=== PATIENT | male | born 1960 | race Caucasian/White ===

== ENCOUNTER 2019-11-01 06:55 | Emergency (ER) | payer BC ==
[2019-11-01] MEDS ORDERED: Sodium Chloride 0.9% 10 ML Syringe FLUSH PRN (07:05)
[2019-11-01] MEDS ORDERED: Aspirin 81 MG Tab.Chew PO ONE (07:05)
[2019-11-01] MEDS ORDERED: Morphine 4 MG/ML Syringe IVPUSH ONE ×2 (07:05→07:52)
--- NOTE | 2019-11-01 07:32 | EDM.PDOC ---
ED HPI GENERAL MEDICAL PROBLEM - General Chief Complaint: Chest Pain Stated Complaint: CHEST PAIN Time Seen by Provider: 11/01/19 06:59 Source of Information: Reports: Patient History Limitations: Reports: No Limitations - History of Present Illness INITIAL COMMENTS - FREE TEXT/NARRATIVE: The patient presents with chest pain. This has been going no for about 3 days. It comes and goes. This morning it would not go away. He went to his doctor Dr Espana yesterday and he did labs and an EKG and set him up for a stress test tomorrow. He says the pain is sharp. He has shortness of breath with it and some nausea. He has some numbness down both arms. He denies fever, chills, cough, congestion, runny nose, or abdominal pain. He has never had a heart attack before. He has no history of hypertension, hypercholesterolemia, or diabetes. He does smoke. Onset: Gradual Duration: Day(s): (3) Location: Reports: Chest Quality: Reports: Sharp Severity: Moderate Improves with: Reports: None Worsens with: Reports: None Associated Symptoms: Reports: Chest Pain, Shortness of Breath. Denies: Cough, Fever/Chills, Headaches, Nausea/Vomiting chrst Pain Score (Numeric/FACES): 8 - Related Data Allergies Allergy/AdvReac Type Severity Reaction Status Date / Time No Known Allergies Allergy Verified 11/01/19 07:02 Home Meds: Home Meds . [No Known Home Meds] 11/01/19 [History] Past Medical History - Past Health History Medical/Surgical History: Denies Medical/Surgical History Social & Family History - Tobacco Use Smoking Status *Q: Current Every Day Smoker Years of Tobacco use: 40 Packs/Tins Daily: 0.5 - Recreational Drug Use Recreational Drug Use: No ED ROS GENERAL - Review of Systems Review Of Systems: See Below Constitutional: Reports: No Symptoms HEENT: Reports: No Symptoms Respiratory: Reports: Shortness of Breath Cardiovascular: Reports: Chest Pain Endocrine: Reports: No Symptoms GI/Abdominal: Reports: No Symptoms : Reports: No Symptoms Musculoskeletal: Reports: No Symptoms ED EXAM, GENERAL - Physical Exam Exam: See Below Exam Limited By: No Limitations General Appearance: Alert, No Apparent Distress Ears: Normal External Exam Nose: Normal Inspection Head: Atraumatic, Normocephalic Neck: Normal Inspection Respiratory/Chest: No Respiratory Distress, Lungs Clear, Normal Breath Sounds Cardiovascular: Regular Rate, Rhythm, No Edema, No Murmur GI/Abdominal: Soft, Non-Tender, No Organomegaly, No Mass Extremities: Normal Inspection Neurological: Alert, Oriented, No Motor/Sensory Deficits EKG INTERPRETATION EKG Date: 11/01/19 Time: 06:59 Rhythm: Other (Junctional rhythm) Rate (Beats/Min): 41 [place]: Normal P-Wave: Present QRS: Normal ST-T: Other (Depression in the lateral leads with slight elevation in the anterior leads) QT: Normal Course - Vital Signs Last Recorded V/S: Last Vital Signs Temp 97.8 F 11/01/19 06:59 Pulse 40 L 11/01/19 06:59 Resp 19 11/01/19 06:59 BP 185/86 H 11/01/19 06:59 Pulse Ox 100 11/01/19 06:59 - Orders/Labs/Meds Orders: Active Orders 24 hr Category Date Time Status Cardiac Monitoring [RC] . DIRECTED Care 11/01/19 07:05 Active EKG Documentation Completion [RC] ASDIRECTED Care 11/01/19 08:15 Active EKG Documentation Completion [RC] STAT Care 11/01/19 07:06 Active Oxygen Therapy [RC] PRN Care 11/01/19 07:05 Active Peripheral IV Care [RC] . DIRECTED Care 11/01/19 07:06 Active CORONAVIRUS COVID-19 PCR PHL Stat Lab 11/01/19 08:03 Ordered Sodium Chloride 0.9% [Saline Flush] Med 11/01/19 07:05 Active 10 ml FLUSH ASDIRECTED PRN Peripheral IV Insertion Adult [OM.PC] Stat Oth 11/01/19 07:05 Ordered EKG 12 Lead [EK] Stat Ther 11/01/19 08:15 Ordered Medication Orders Sodium Chloride (Saline Flush) 10 ml FLUSH ASDIRECTED PRN PRN Reason: Keep Vein Open Last Admin: 11/01/19 07:11 Dose: 10 ml Documented by: BAKARI Labs: Laboratory Tests 11/01/19 11/01/19 Range/Units 07:06 07:06 WBC 12.07 H (4.23-9.07) K/mm3 RBC 5.08 (4.63-6.08) M/mm3 Hgb 16.8 (13.7-17.5) gm/dl Hct 48.6 (40.1-51.0) % MCV 95.7 H (79.0-92.2) fl MCH 33.1 H (25.7-32.2) pg MCHC 34.6 (32.2-35.5) g/dl RDW Std Deviation 44.8 H (35.1-43.9) fL Plt Count 308 (163-337) K/mm3 MPV 10.8 (9.4-12.3) fl Neut % (Auto) 47.7 (34.0-67.9) % Lymph % (Auto) 38.1 (21.8-53.1) % [place] % (Auto) 9.5 (5.3-12.2) % Eos % (Auto) 3.7 (0.8-7.0) Baso % (Auto) 0.7 (0.1-1.2) % Neut # (Auto) 5.74 H (1.78-5.38) K/mm3 Lymph # (Auto) 4.60 H (1.32-3.57) K/mm3 Haines # (Auto) 1.15 H (0.30-0.82) K/mm3 Eos # (Auto) 0.45 (0.04-0.54) K/mm3 Baso # (Auto) 0.09 H (0.01-0.08) K/mm3 Sodium 141 (136-145) mEq/L Potassium 3.9 (3.5-5.1) mEq/L Chloride 104 (98-107) mEq/L Carbon Dioxide 26 (21-32) mEq/L Anion Gap 14.9 (5-15) BUN 14 (7-18) mg/dL Creatinine 1.0 (0.7-1.3) mg/dL Est Cr Clr Drug Dosing 82.13 mL/min Estimated GFR (MDRD) > 60 (>60) mL/min BUN/Creatinine Ratio 14.0 (14-18) Glucose 101 (74-106) mg/dL Calcium 8.7 (8.5-10.1) mg/dL Total Bilirubin 0.6 (0.2-1.0) mg/dL AST 19 (15-37) U/L ALT 24 (16-63) U/L Alkaline Phosphatase 50 (46-116) U/L Troponin I 0.021 (0.00-0.056) ng/mL Total Protein 7.4 (6.4-8.2) g/dl Albumin 3.6 (3.4-5.0) g/dl Globulin 3.8 gm/dL Albumin/Globulin Ratio 1.0 (1-2) Meds: Medications Generic Name Dose Route Start Last Admin Trade Name Freq PRN Reason Stop Dose Admin Sodium Chloride 10 ml 11/01/19 07:05 11/01/19 07:11 Saline Flush FLUSH 10 ml ASDIRECTED PRN Administration Keep Vein Open Discontinued Medications Generic Name Dose Route Start Last Admin Trade Name Freq PRN Reason Stop Dose Admin Aspirin 324 mg 11/01/19 07:05 11/01/19 07:14 Aspirin PO 11/01/19 07:06 324 mg ONETIME ONE Administration Morphine Sulfate 4 mg 11/01/19 07:05 11/01/19 07:14 Morphine IVPUSH 11/01/19 07:06 Not Given ONETIME ONE Morphine Sulfate 4 mg 11/01/19 07:52 11/01/19 07:59 Morphine IVPUSH 11/01/19 07:53 4 mg ONETIME ONE Administration Tenecteplase 50 mg 11/01/19 08:20 Tnkase IV 11/01/19 08:21 ONETIME ONE Protocol - Re-Assessments/Exams Free Text/Narrative Re-Assessment/Exam: 11/01/19 07:31 I ordered oxygen PRN, EKG, CXR, IV saline lock, aspirin, morphine, and labs. His EKG shows a junctional rhythm at [address] depression in the lateral leads and slight elevation in the inferior leads. I have requested his EKG from yesterday. 11/01/19 07:59 His WBC was elevated at 12.07. His CMP is negative. His troponin is negative at 0.021. His pain is better with the aspirin. He did not want the morphine at first but he will now. I am concerned about the EKG changes and chest pain. I feel he needs to go to [facility] in [place] and see cardiology. I called [facility] in [place] and talked to Dr Olson the medicare specialist therapeutic recreation assistant and she wan francis a repeat EKG. 11/01/19 08:05 I have added a COVID 19 screen. The patient is being admitted to [facility] and may get a heart cath. 11/01/19 08:25 The repeat EKG shows more ST elevation. It appears he has evolved into a STEMI. I have ordered TnKase 50mg, Heparin bolus and drip. I called Dr Faustin the behavioral pediatrician and she wanted us to tri a low dose nitro drip. His pressure is very good. Departure - Departure Time of Disposition: 08:35 Disposition: DC/Tfer to Acute Hospital 02 Reason for Transfer *Q: Primary PCI Indicated Condition: Serious Clinical Impression: STEMI (ST elevation myocardial infarction) Qualifiers: Involved coronary artery: right coronary artery Qualified Code(s): I21.11 - ST elevation (STEMI) myocardial infarction involving right coronary artery Referrals: Samson Espana MD [Primary Care Provider] - Forms: ED Department Discharge Sepsis Event Note (ED) - Evaluation Sepsis Screening Result: No Definite Risk - Focused Exam Vital Signs: Vital Signs Temp Pulse Resp BP Pulse Ox 11/01/19 06:59 97.8 F 40 L 19 185/86 H 100 - My Orders Last 24 Hours: My Active Orders 11/01/19 07:05 Cardiac Monitoring [RC] . DIRECTED Oxygen Therapy [RC] PRN Sodium Chloride 0.9% [Saline Flush] 10 ml FLUSH ASDIRECTED PRN Peripheral IV Insertion Adult [OM.PC] Stat 11/01/19 07:06 EKG Documentation Completion [RC] STAT Peripheral IV Care [RC] . DIRECTED 11/01/19 08:03 CORONAVIRUS COVID-19 PCR PHL Stat 11/01/19 08:15 EKG Documentation Completion [RC] ASDIRECTED EKG 12 Lead [EK] Stat - Assessment/Plan Last 24 Hours: My Active Orders 11/01/19 07:05 Cardiac Monitoring [RC] . DIRECTED Oxygen Therapy [RC] PRN Sodium Chloride 0.9% [Saline Flush] 10 ml FLUSH ASDIRECTED PRN Peripheral IV Insertion Adult [OM.PC] Stat 11/01/19 07:06 EKG Documentation Completion [RC] STAT Peripheral IV Care [RC] . DIRECTED 11/01/19 08:03 CORONAVIRUS COVID-19 PCR PHL Stat 11/01/19 08:15 EKG Documentation Completion [RC] ASDIRECTED EKG 12 Lead [EK] Stat
--- NOTE | 2019-11-01 08:18 | CR ---
Chest: Portable view of the chest was obtained. Comparison: No prior chest imaging is available. Heart size and mediastinum are normal. Lungs are clear with no acute parenchymal change. Bony structures are grossly intact. Impression: 1. Nothing acute is seen on portable chest x-ray. Diagnostic code #1 This report was dictated in MDT
[2019-11-01] MEDS ORDERED: Tenecteplase 50 MG Kit IV ONE (08:20)
[2019-11-01] MEDS ORDERED: Heparin Sodium 5,000 Units/ML Vial IVPUSH ONE (08:29)
[2019-11-01] MEDS ORDERED: Heparin Sodium/D5W 25,000 UNITS/500 ML BAG IV SCH (08:30)
[2019-11-01] MEDS ORDERED: Nitroglycerin/D5W 25 MG/250 ML BOTTLE IV SCH (08:30)
[2019-11-01] MEDS ORDERED: Atropine 0.4 MG/ML SDV IVPUSH ONE (09:02)
[2019-11-01] MEDS ORDERED: Atropine 0.1 MG/ML 10 ML Syringe ONE (09:03)
[2019-11-01] MEDS ORDERED: Ondansetron 4 MG/2 ML SDV ONE (09:10)
[2019-11-01] MEDS ORDERED: LORazepam 2 MG/ML SDV ONE (09:21)
== END 2019-11-01 09:30 ==
LOC: JD.ED 06:55
DX: I21.11 ST elevation (STEMI) myocardial infarction involving right coronary artery (principal); F17.210 Nicotine dependence, cigarettes, uncomplicated
CPT/HCPCS: 36415; 71045; 80053; 84484; 85025; 85730; 87635; 92975; 92977; 93005; 96365; 96368; 96375; 99285; A9270; J0461; J1644; J2060; J2270; J2405; J3101; J3490; 93010; U0002